=== PATIENT | female | born 1985 | race Two or more races ===

== ENCOUNTER 2022-12-16 10:14 | Inpatient (IN) | payer BC ==
[~2022-12-16] VITALS: Ht 172.7 cm; Wt 53.1 kg
[~2022-12-16 10:14] MED LIST: ATOR20TA PO; ETHI1TAB PO; INSU100V11 SQ; INSU3INS6 SQ; LISI2.5T2 PO
[2022-12-16] MEDS ORDERED: ONDANSETRON HCL/PF 4 MG/2 ML VIAL IVP ONE (10:30)
[2022-12-16] MEDS ORDERED: IV NS 0.9% 1,000 ML BAG IV ONE (10:30)
[2022-12-16] MEDS ORDERED: ONDANSETRON HCL/PF 4 MG/2 ML VIAL ONE (10:38)
--- NOTE | 2022-12-16 10:40 | NUR ---
Patient came in to the er c/o nausea vomiting since wednesday. On rom air, breathing evenly and unlabored. Connected to the monitor and pulse ox. Kept comfortable, will continue to monitor accordingly.
--- NOTE | 2022-12-16 10:52 | NUR ---
blood drawned and sent to lab.
[2022-12-16 11:11] LABS: BASOPHILS # (AUTO) 0.1 K/uL (0.0-0.2); BASOPHILS % (AUTO) 0.6 % (0.0-2.0); EOSINOPHILS % (AUTO) 0.4 % (0.0-6.0); HEMATOCRIT 42 % (33-45); HEMOGLOBIN 13.4 g/dL (11.5-14.8); LYMPHOCYTES # (AUTO) 1.4 K/uL (0.8-4.8); MEAN CORPUSCULAR HGB CONC 32 g/dl (31.0-36.0); MEAN CORPUSCULAR VOLUME 89 fL (82-100); MONOCYTES # (AUTO) 0.3 K/uL (0.1-1.30); MONOCYTES % (AUTO) 3.3 % (2.0-12.0); NEUTROPHILS # (AUTO) 7.3 K/uL (1.8-8.9); NEUTROPHILS % (AUTO) 80.7 % (43.0-81.0); PLATELET COUNT (AUTO) 432 K/uL (150-450); RED BLOOD CELL COUNT(AUTO) 4.66 MIL/uL (4.0-5.2)
[2022-12-16 11:22] LABS: ALBUMIN 3.7 g/dL (3.4-5.0); BILIRUBIN,DIRECT 0.1 mg/dL (0.0-0.2); BILIRUBIN,TOTAL 0.7 mg/dL (0.2-1.0); CALCIUM, SERUM 10.5 mg/dL (8.5-10.1); CREATININE 1.5 mg/dL (0.6-1.3); POTASSIUM 3.7 mmol/L (3.5-5.1); TOTAL PROTEIN, SERUM 9.1 g/dL (6.4-8.2)
[2022-12-16] MEDS ORDERED: INSU100V SQ (11:33)
[2022-12-16] MEDS ORDERED: OMEP20CA15 PO (11:33)
[2022-12-16 11:47] LABS: ABG BASE EXCESS -3.4 mmol/L; ABG PCO2 24.4 mmHg (35.0-45.0); ABG PH 7.491 (7.350-7.450); COHb 0.3 % (0.5-1.5); MetHb 0.2 % (0.0-1.5); SITE, ABG Right Radial; VENT MODE, BG ROOM AIR
--- NOTE | 2022-12-16 11:48 | NUR ---
SWAB FOR COVID19 SENT TO LAB
--- NOTE | 2022-12-16 11:57 | NUR ---
URINE SAMPLE SENT TO LAB
[2022-12-16] MEDS ORDERED: IV NS 0.9% 1,000 ML IV ONE (12:00)
[2022-12-16] MEDS ORDERED: LIDOCAINE VISCOUS 2% UD 15 ML UDC ONE (12:00)
[2022-12-16] MEDS ORDERED: INSULIN REGULAR, HUMAN 100 UNIT/ML 10 ML VIAL SQ ONE (12:00)
[2022-12-16] MEDS ORDERED: MAG HYDROX/AL HYDROX/SIMETH 30 ML UDC ONE (12:00)
[2022-12-16] MEDS ORDERED: FAMOTIDINE/PF INJ 20 MG/2 ML VIAL IV ONE ×2 (12:00→12:01)
[2022-12-16] MEDS ORDERED: LIDOCAINE VISCOUS 2% UD 15 ML UDC MM ONE (12:00)
[2022-12-16] MEDS ORDERED: MAG HYDROX/AL HYDROX/SIMETH 30 ML UDC PO ONE (12:00)
--- NOTE | 2022-12-16 12:00 | NUR ---
MOVE SHEET SUBMITTED.
[2022-12-16] MEDS ORDERED: INSULIN REGULAR, HUMAN 100 UNIT/ML 10 ML VIAL ONE (12:21)
[2022-12-16 12:31] LABS: BILIRUBIN,URINE 2+ (NEGATIVE); COLOR,URINE YELLOW (YELLOW); LEUKOCYTE ESTERASE ,URINE TRACE (NEGATIVE); NITRITE, URINE NEGATIVE (NEGATIVE); PROTEIN,URINE NEGATIVE (NEGATIVE); UGLUCOSE 2+ mg/dL (NEGATIVE); UROBILINOGEN,URINE 0.2 EU/dL (0.2)
[2022-12-16 12:51] LABS: BACTERIA,URINE Rare /HPF (None Seen); SQUAMOUS EPITHELIAL CELL,UR Many /HPF (None Seen)
[2022-12-16] MEDS ORDERED: diphenhydrAMINE HCL 50 MG/ML VIAL IV ONE (13:30)
[2022-12-16] MEDS ORDERED: METOCLOPRAMIDE HCL 10 MG/2 ML VIAL IV ONE (13:30)
[2022-12-16] MEDS ORDERED: diphenhydrAMINE HCL 50 MG/ML VIAL ONE (13:31)
[2022-12-16] MEDS ORDERED: METOCLOPRAMIDE HCL 10 MG/2 ML VIAL ONE (13:31)
--- NOTE | 2022-12-16 13:47 | NUR ---
BED 328-2
--- NOTE | 2022-12-16 14:49 | NUR ---
REPORT GIVEN TO MARY GASTELUM FOR IVORY
--- NOTE | 2022-12-16 15:00 | NUR ---
MS GRANITE POLISHER NOTES: RECEIVED TELEPHONE REPORT FROM ER STAFF. PT CAME TO UNIT VIA GURNEY, AMBULATED TO BED WITH STEADY GAIT. PT IS AWAKE, A/O X4, VERBALIZES NEEDS, FAMILY AT BEDSIDE. STABLE ON RA, WITH NO S/S OF ACUTE RESP DISTRESS. VITALS FB=475/82, HR= 110, RESP =18, O2 SAT @ 99%. PT C/O OF NAUSEA, WILL MEDICATE ORDERED. DENIES PAIN AT THIS TIME. IV ACCESS AT R AC #18, INTACT, FLUSHING WELL. PER MD ORDER WILL INFUSE NS @ 125ML/HR. PT IS CLEAN, SKIN IS INTACT. ORIENTED TO ROOM, UNIT AND STAFF, INSTRUCTED ABOUT USE OF CALL LIGHT, PT VERBALIZED UNDERSTANDING. SAFETY MEASURES IN PLACE, TABLE AND CALL LIGHT WITHIN REACH, WILL CONT WITH PLAN OF CARE DURING SHIFT. Addendum: 12/16/22 at 1922 by OREN JASMINE RN PT IS TELE, SHOE PATTERNMAKER PLACED, PT IS ST, HR = 112
[2022-12-16] MEDS ORDERED: ONDANSETRON HCL/PF 4 MG/2 ML VIAL IVP PRN (15:30)
[2022-12-16] MEDS ORDERED: DEXTROSE 50%-WATER 50 ML DISP.SYRIN IV PRN (15:30)
[2022-12-16] MEDS ORDERED: ACETAMINOPHEN 325 MG TABLET PO PRN (15:30)
[2022-12-16] MEDS ORDERED: Z GUARD REMEDY 4 OZ OINT TP PRN (15:30)
[2022-12-16] MEDS ORDERED: MAGNESIUM HYDROXIDE 30 ML UDC PO PRN (15:30)
[2022-12-16] MEDS: IV NS 0.9% 1,000 ML IV SCH (15:31)
[2022-12-16] MEDS: METOCLOPRAMIDE HCL 10 MG/2 ML VIAL IV PRN (16:19)
[2022-12-16] MEDS: INSULIN REGULAR, HUMAN 100 UNIT/ML 3 ML VIAL SQ PRN (17:23)
[2022-12-16] MEDS: INSULIN GLARGINE, 100 UNIT/ML CARTRIDGE SQ SCH (17:34)
[2022-12-16] MEDS: BLOOD SUGAR DIAGNOSTIC 1 EACH STRIP VI SCH ×2 (17:35→21:05)
--- NOTE | 2022-12-16 19:16 | NUR ---
TITLE SEARCH MANAGER CLOSING NOTES: PT IS AWAKE, A/O X4, VERBALIZES NEEDS, STABLE ON RA, WITH NO S/S OF ACUTE RESP DISTRESS. PT ON TELE MONITOR, READ SINUS TACHYCARDIA, HR= 108. IV ACCESS AT R AC #18, RUNNING NS @ 125ML/HR. NAUSEA CONTROL AND GLUCOSE CONTROL ADMINISTERED, ALL NEEDS MET. SAFETY MEASURES IN PLACE, TABLE AND CALL LIGHT WITHIN REACH, ENDORSED TO PM SHIFT.
--- NOTE | 2022-12-16 20:00 | NUR ---
TRIMMING MACHINE SET UP OPERATOR OPENING NOTES RECEIVED PATIENT IN BED AWAKE, ALERT AND ORIENTED. A/O X 4. ON RA, NO SIGNS OF RESPIRATORY DISTRESS AT THIS TIME. IV ACCESS ON RAC #18G WITH NS RUNNING 125 ML/HR, INFUSING WELL. ON TELE MONITOR, SINUS TACH WITH HR OF 115. SAFETY MEASURES GIVEN WITH BED ON LOWEST AND LOCKED POSITION. CALL LIGHT AND TABLE ON REACH. SIDE RAILS UP X 2. WILL CONTINUE WITH THE PLAN OF CARE.
[2022-12-16] MEDS: ONDANSETRON HCL/PF 4 MG/2 ML VIAL IVP PRN (20:01)
[2022-12-16] MEDS: *INSULIN REGULAR(HUMULIN R)HUM 100 UNIT/ML VIAL SQ PRN (21:08)
[2022-12-16] MEDS: TEMAZEPAM 15 MG CAPSULE PO PRN (21:45)
--- NOTE | 2022-12-16 21:45 | NUR ---
RN NOTES PATIENT ASKED FOR SLEEP MEDICATION. RESTORIL 15MG GIVEN PER DR. TAYLOR. BED ALARM ON. WILL CONTINUE TO MONITOR PATIENT.
[2022-12-17] MEDS: IV NS 0.9% 1,000 ML IV SCH ×4 (00:20→23:05)
[2022-12-17] MEDS: ONDANSETRON HCL/PF 4 MG/2 ML VIAL IVP PRN ×5 (02:52→16:51)
--- NOTE | 2022-12-17 03:45 | NUR ---
RN NOTES BLOOD SUGAR RE-CHECKED. 219 WILL CONTINUE TO MONITOR.
--- NOTE | 2022-12-17 04:18 | NUR ---
RN NOTES PATIENT ASKED FOR HEARTBURN MEDICATION. MAALOX GIVEN. WILL CONTINUE TO MONITOR.
[2022-12-17] MEDS: MAG HYDROX/AL HYDROX/SIMETH 30 ML UDC PO PRN (04:19)
--- NOTE | 2022-12-17 05:10 | NUR ---
RN NOTES PATIENT HAS BEEN VOMITING MULTIPLE TIMES. ICE CHIPS GIVEN TO ALLEVIATE N&V.
[2022-12-17] MEDS: METOCLOPRAMIDE HCL 10 MG/2 ML VIAL IV PRN ×2 (05:34→15:15)
--- NOTE | 2022-12-17 05:45 | NUR ---
RN NOTES REGLAN GIVEN TO PATIENT FOR N&V. WILL CONTINUE TO MONITOR.
[2022-12-17 06:16] LABS: BASOPHILS % (AUTO) 0.4 % (0.0-2.0); EOSINOPHILS % (AUTO) 0.1 % (0.0-6.0); HEMATOCRIT 37 % (33-45); HEMOGLOBIN 11.9 g/dL (11.5-14.8); LYMPHOCYTES # (AUTO) 1.5 K/uL (0.8-4.8); LYMPHOCYTES % (AUTO) 12.3 % (20.0-44.0); MEAN CORPUSCULAR HGB CONC 32 g/dl (31.0-36.0); MEAN CORPUSCULAR VOLUME 88 fL (82-100); MONOCYTES # (AUTO) 1.2 K/uL (0.1-1.30); MONOCYTES % (AUTO) 9.9 % (2.0-12.0); NEUTROPHILS # (AUTO) 9.2 K/uL (1.8-8.9); NEUTROPHILS % (AUTO) 77.3 % (43.0-81.0); PLATELET COUNT (AUTO) 408 K/uL (150-450); RED BLOOD CELL COUNT(AUTO) 4.17 MIL/uL (4.0-5.2); WHITE BLOOD COUNT (AUTO) 11.9 K/uL (4.3-11.0)
[2022-12-17 06:36] LABS: CALCIUM, SERUM 8.9 mg/dL (8.5-10.1); CREATININE 1.3 mg/dL (0.6-1.3); PHOSPHORUS 2.2 mg/dL (2.5-4.9); POTASSIUM 3.1 mmol/L (3.5-5.1)
[2022-12-17] MEDS ORDERED: POTASSIUM CHLORIDE 20 MEQ TAB.PRT.SR PO ONE (07:30)
--- NOTE | 2022-12-17 07:30 | NUR ---
BATCH OPERATOR OPENING NOTES RECEIVED PATIENT IN BED AWAKE, ALERT AND ORIENTED. A/O X 4. ON RA, NO SIGNS OF RESPIRATORY DISTRESS AT THIS TIME. IV ACCESS ON RAC #18G WITH NS INFUSING @ 125 ML/HR, IV SITE INTACT PATENT. ON TELE MONITOR, SINUS TACHYCARDIA HR 110BPM. SAFETY MEASURES DONE BED ON LOWEST POSITION, BED LOCKED. CALL LIGHT AND TABLE WITHIN PATIENTS REACH. SIDE RAILS UP X 2. WILL CONTINUE PLAN OF CARE.
[2022-12-17 08:00] VITALS: BP 144/72
--- NOTE | 2022-12-17 08:04 | NUR ---
SYSTEM CONFIGURATION SPECIALIST CLOSING NOTES PATIENT IN BED AWAKE, ALERT AND ORIENTED. A/O X 4. ON RA, NO SIGNS OF RESPIRATORY DISTRESS AT THIS TIME. IV ACCESS ON RAC #18G WITH NS RUNNING 125 ML/HR, INFUSING WELL. ON TELE MONITOR, SINUS TACH WITH HR OF 111. SAFETY MEASURES GIVEN WITH BED ON LOWEST AND LOCKED POSITION. CALL LIGHT AND TABLE ON REACH. SIDE RAILS UP X 2. MEDICATIONS GIVEN DURING SHIFT. WILL ENDORSE TO THE NEXT SHIFT.
[2022-12-17] MEDS: PANTOPRAZOLE 40 MG TABLET.DR PO SCH (08:19)
--- NOTE | 2022-12-17 08:20 | NUR ---
RN NOTES PATIENT VERBALIZES NAUSEA. PATIENT IS GIVEN ZOFRAN.
[2022-12-17] MEDS: BLOOD SUGAR DIAGNOSTIC 1 EACH STRIP VI SCH ×4 (08:46→21:21)
--- NOTE | 2022-12-17 08:50 | NUR ---
RN NOTES PATIENT REASSESSMENT TO MICHAEL. PATIENT CLAIMS TO STILL BE NAUSEOUS BUT A BIT ALLEVIATED
[2022-12-17] MEDS ORDERED: IV NS 0.9% 500 ML BAG IV PRN (09:30)
[2022-12-17] MEDS: POTASSIUM PHOSPHATE MM 7.5 MMOL in IV NS 0.9% 100 ML IV SCH ×2 (09:39→12:43)
[2022-12-17] MEDS: INSULIN REGULAR, HUMAN 100 UNIT/ML 3 ML VIAL SQ PRN ×2 (11:51→17:42)
[2022-12-17 12:00] VITALS: BP 130/68
--- NOTE | 2022-12-17 15:19 | NUR ---
MS RN NOTE PATIENT COMPLAINED OF NAUSEA. 2 HOURS PAST ZOFRAN WAS GIVEN PATIENT JUST WOKE UP FEELING NAUSEATED. ZOFRAN GIVEN INDICATED/ REQUESTED. MAINTAINED ON HIGH BACK REST. COMFORT MEASURES PROVIDED. ICE CHIPS GIVEN.
[2022-12-17] MEDS: INSULIN GLARGINE, 100 UNIT/ML CARTRIDGE SQ SCH (17:51)
--- NOTE | 2022-12-17 18:49 | NUR ---
MS RN CLOSING NOTES: PT IS AWAKE, A/O X4, VERBALIZES NEEDS, STABLE ON ROOM AIR, WITH NO SIGNS OF DISTRESS. PATIENT CLAIMS TO STILL HAVE NAUSEA DESPITE ZOFRAN AND REGLAN. DOCTOR IS INFORMED. IV ACCESS AT R AC #18, RUNNING NS @ 125ML/HR. ALL DUE MEDICATIONS ADMINISTERED, ATTENDED TO ALL NEEDS. SAFETY MEASURES IN PLACE, BED LOCKED AND IS AT LOWEST POSITION, TABLE AND CALL LIGHT WITHIN REACH, ENDORSED TO NEXT SHIFT FRO CONTINUITY OF CARE.
--- NOTE | 2022-12-17 19:50 | NUR ---
MS RN OPENING NOTE PATIENT AWAKE IN BED, ALERT/ORIENTED X 4, PT ABLE TO MAKE NEEDS KNOWN. PATIENT STABLE ON RA, NO S/S OF DISTRESS OR SOB NOTED, BREATHING EVEN AND UNLABORED. PT STILL C/O OF NAUSEA DESPITE ZOFRAN AND REGLAN GIVEN BY LUIS E RN. IV ACCESS ON RAC #18G INTACT AND INFUSING NS @ 125 ML/HR. SAFETY MEASURES IN PLACE: CALL LIGHT WITHIN REACH, SIDE RAILS UP X 2, BED LOCKED IN LOWEST POSITION, HOB ELEVATED, BED ALARM ON. WILL CONTINUE TO MONITOR PATIENT
[2022-12-17 20:00] VITALS: BP 136/76
--- NOTE | 2022-12-17 20:10 | NUR ---
MS RN NOTE NOTIFIED BUILDING ATTENDANT MD RICKY TAYLOR, PT C/O NAUSEA THAT HAS NOT BEEN RELIEVED BY ZOFRAN OR REGLAN TODAY. ORDER FOR COMPAZINE 10 MG IM Q8H PRN FOR SEVERE NAUSEA THAT'S NOT RELIEVED BY ZOFRAN OR REGLAN
[2022-12-17] MEDS ORDERED: PROCHLORPERAZINE EDISYLATE 10 MG/2 ML VIAL IM PRN (20:30)
--- NOTE | 2022-12-17 20:36 | NUR ---
MS RN NOTE CALLED PHARMACY, COMPAZINE 10 MG IM NOT AVAILABLE ON [facility], PER PHARMACIST THEY WILL BRING MEDICATION
--- NOTE | 2022-12-17 21:05 | NUR ---
MS RN NOTE PATIENT C/O NAUSEA, HAS BEEN UNRELIEVED BY ZOSTEPHENIE AND REGLAN. PRN COMPAZINE 10 MG IM Q8H GIVEN ORDERED, WILL CONTINUE TO MONITOR PATIENT
[2022-12-17] MEDS: TEMAZEPAM 15 MG CAPSULE PO PRN (21:15)
--- NOTE | 2022-12-17 21:18 | NUR ---
MS RN NOTE PATIENT REQUESTING SLEEPING MEDICATION, RESTORIL 15 MG PO GIVEN ORDERED
[2022-12-17] MEDS: *INSULIN REGULAR(HUMULIN R)HUM 100 UNIT/ML VIAL SQ PRN (21:21)
[2022-12-18] MEDS: ONDANSETRON HCL/PF 4 MG/2 ML VIAL IVP PRN ×5 (00:47→22:11)
[2022-12-18] MEDS: METOCLOPRAMIDE HCL 10 MG/2 ML VIAL IV PRN ×2 (03:52→17:52)
[2022-12-18 06:23] LABS: BASOPHILS # (AUTO) 0.1 K/uL (0.0-0.2); BASOPHILS % (AUTO) 0.9 % (0.0-2.0); HEMATOCRIT 34 % (33-45); HEMOGLOBIN 11.3 g/dL (11.5-14.8); LYMPHOCYTES # (AUTO) 1.9 K/uL (0.8-4.8); LYMPHOCYTES % (AUTO) 25.9 % (20.0-44.0); MEAN CORPUSCULAR HGB CONC 33 g/dl (31.0-36.0); MEAN CORPUSCULAR VOLUME 89 fL (82-100); MONOCYTES # (AUTO) 0.7 K/uL (0.1-1.30); MONOCYTES % (AUTO) 9.8 % (2.0-12.0); NEUTROPHILS # (AUTO) 4.6 K/uL (1.8-8.9); NEUTROPHILS % (AUTO) 62.4 % (43.0-81.0); PLATELET COUNT (AUTO) 340 K/uL (150-450); RED BLOOD CELL COUNT(AUTO) 3.87 MIL/uL (4.0-5.2); WHITE BLOOD COUNT (AUTO) 7.3 K/uL (4.3-11.0)
[2022-12-18] MEDS: IV NS 0.9% 1,000 ML IV SCH (06:37)
[2022-12-18] MEDS: INSULIN REGULAR, HUMAN 100 UNIT/ML 3 ML VIAL SQ PRN ×3 (06:39→17:34)
[2022-12-18] MEDS: MAG HYDROX/AL HYDROX/SIMETH 30 ML UDC PO PRN ×2 (06:53→13:52)
--- NOTE | 2022-12-18 07:00 | NUR ---
MS RN OPENING NOTES PATIENT LAYING IN BED, A/O X 4, ABLE TO MAKE NEEDS KNOWN, TOLERATING WELL ON ROOM AIR WITH NO S/S RESPIRATORY DISTRESS. NO COMPLAINTS OF NAUSEA AT THIS TIME. R AC # 18 CLEAN, INTACT, INFUSING NS @ 125 ML/HR. SAFETY MEASURES IN PLACE: BED IN LOWEST LOCKED POSITION, SIDE RAILS UP X 2, CALL LIGHT WITHIN REACH. WILL CONTINUE TO MONITOR.
--- NOTE | 2022-12-18 07:07 | NUR ---
MS RN CLOSING NOTE PATIENT AWAKE IN BED, ALERT/ORIENTED X 4, PT ABLE TO MAKE NEEDS KNOWN. PATIENT STABLE ON RA, NO S/S OF DISTRESS OR SOB NOTED, BREATHING EVEN AND UNLABORED. PT STILL C/O OF NAUSEA DESPITE COMPAZINE, ZOFRAN, AND REGLAN GIVEN THIS SHIFT, NO RELIEF PER PATIENT, 1 EPISODE OF EMESIS. IV ACCESS ON RAC #18G INTACT AND INFUSING NS @ 125 ML/HR. MEDICATIONS GIVEN ORDERED, PT NEEDS MET THROUGHOUT SHIFT. SAFETY MEASURES IN PLACE: CALL LIGHT WITHIN REACH, SIDE RAILS UP X 2, BED LOCKED IN LOWEST POSITION, HOB ELEVATED, BED ALARM ON. WILL ENDORSE TO DAYSHIFT RN FOR CONTINUITY OF CARE
[2022-12-18 07:11] LABS: CREATININE 0.9 mg/dL (0.6-1.3); PHOSPHORUS 2.6 mg/dL (2.5-4.9); POTASSIUM 3.5 mmol/L (3.5-5.1)
[2022-12-18] MEDS: BLOOD SUGAR DIAGNOSTIC 1 EACH STRIP VI SCH ×4 (07:51→22:11)
[2022-12-18 08:00] VITALS: BP 135/75
[2022-12-18] MEDS: PANTOPRAZOLE 40 MG TABLET.DR PO SCH (09:12)
[2022-12-18] MEDS: IV NS 0.9% 1,000 ML IV PRN (14:42)
[2022-12-18 16:09] VITALS: BP 140/72
[2022-12-18] MEDS: INSULIN GLARGINE, 100 UNIT/ML CARTRIDGE SQ SCH (17:33)
--- NOTE | 2022-12-18 18:45 | NUR ---
MS RN CLOSING NOTES PATIENT LAYING IN BED, A/O X 4, ABLE TO MAKE NEEDS KNOWN, TOLERATING WELL ON ROOM AIR WITH NO S/S RESPIRATORY DISTRESS. PATIENT WITH NAUSEA DURING SHIFT NOT RELIEVED BY MEDICATION. NO EMESIS DURING SHIFT. R AC # 18 CLEAN, INTACT, INFUSING NS @ 125 ML/HR. SAFETY MEASURES IN PLACE: BED IN LOWEST LOCKED POSITION, SIDE RAILS UP X 2, CALL LIGHT WITHIN REACH. ALL NEEDS MET. WILL ENDORSE TO PEDIATRIC REGISTERED NURSE FOR IVORY.
[2022-12-18 20:00] VITALS: BP 135/77
[2022-12-18] MEDS: TEMAZEPAM 15 MG CAPSULE PO PRN (22:11)
[2022-12-18] MEDS: *INSULIN REGULAR(HUMULIN R)HUM 100 UNIT/ML VIAL SQ PRN (22:30)
[2022-12-19] MEDS: IV NS 0.9% 1,000 ML IV PRN (04:04)
[2022-12-19] MEDS: ONDANSETRON HCL/PF 4 MG/2 ML VIAL IVP PRN ×2 (05:31→09:51)
[2022-12-19] MEDS: BLOOD SUGAR DIAGNOSTIC 1 EACH STRIP VI SCH (06:44)
[2022-12-19] MEDS: INSULIN REGULAR, HUMAN 100 UNIT/ML 3 ML VIAL SQ PRN (06:45)
--- NOTE | 2022-12-19 07:25 | NUR ---
MS RN CLOSING NOTE PATIENT SLEEPING IN BED, ALERT/ORIENTED X 4, PT ABLE TO MAKE NEEDS KNOWN. PATIENT STABLE ON RA, NO S/S OF DISTRESS OR SOB NOTED, BREATHING EVEN AND UNLABORED. PATIENT'S NAUSEA IMPROVED THIS SHIFT, NO EPISODES OF EMESIS. IV ACCESS ON LEFT AC #20G INTACT AND INFUSING NS @ 125 ML/HR. MEDICATIONS GIVEN ORDERED, PT NEEDS MET THROUGHOUT SHIFT. SAFETY MEASURES IN PLACE: CALL LIGHT WITHIN REACH, SIDE RAILS UP X 2, BED LOCKED IN LOWEST POSITION, HOB ELEVATED, BED ALARM ON. WILL ENDORSE TO DAYSHIFT RN FOR CONTINUITY OF CARE
--- NOTE | 2022-12-19 07:30 | NUR ---
RN OPENING NOTE RECEIVED PATIENT RESTING IN BED, AWAKE, A/O X4, VERBALLY RESPONSIVE. NO SIGNS OF CAUTE DISTRESS NOTED. ON ROOM AIR, TOLERATING WELL. NO SOB NOTED, BREATHING EVEN AND UNLABORED. DENIES ANY PAIN AT THIS TIME BUT STILL WITH C/O NAUSEA, WILL MEDICATE NEEDED. NOTED WITH IV ACCESS ON LEFT ANTECUBITAL AREA #20G, INTACT AND PATENT WITH NS @125ML/HR INFUSING WELL. SAFETY MEASURE IN PLACE. BED IN LOW AND LOCKED POSITION, SIDE RAILS UP X2, CALL LIGHT PLACED WITHIN EASY REACH. WILL CONTINUE TO MONITOR PATIENT.
[2022-12-19 08:00] VITALS: BP 141/80
[2022-12-19] MEDS: METOCLOPRAMIDE HCL 10 MG/2 ML VIAL IV PRN (08:12)
[2022-12-19] MEDS: PANTOPRAZOLE 40 MG TABLET.DR PO SCH (08:12)
--- NOTE | 2022-12-19 11:35 | NUR ---
ASSISTANT TRACK AND FIELD COACH NOTE PATIENT DISCHARGED HOME IN STABLE CONDITION. PATIENT REMAINS AWAKE, A/O X4, ABLE TO MAKE NEEDS KNOWN. IV ACCESS ON LEFT AC REMOVED, NO BLEEDING NOTED, PRESSURE DRESSING APPLIED TO SITE. ALL BELONGINGS ACCOUNTED FOR. EXITCARE FOLDER GIVEN TO PATIENT. DISCHARGE INSTRUCTIONS AND HEALTH TEACHINGS PROVIDED TO PATIENT WITH VERBALIZATION OF UNDERSTANDING. PATIENT LEFT UNIT @1115, ACCOMPANIED PATIENT TO THE WEST, AMBULATORY. PICKED UP BY HER FATHER ARUN VIA PRIVATE CAR.
== END 2022-12-19 11:10 | disposition home or self-care (01) | DRG 73 ==
LOC: ER 10:23 → TELE 14:23 → MED 12-17 10:15
PROVIDERS: ADMIT Internal Medicine; ATTEND Internal Medicine
DX: E10.43 Type 1 diabetes mellitus with diabetic autonomic (poly)neuropathy (principal); N17.0 Acute kidney failure with tubular necrosis; E87.20 Acidosis, unspecified; E72.51 Non-ketotic hyperglycinemia; E86.0 Dehydration; E10.65 Type 1 diabetes mellitus with hyperglycemia; Z79.4 Long term (current) use of insulin; K31.84 Gastroparesis; Z20.822 Contact with and (suspected) exposure to COVID-19; K29.70 Gastritis, unspecified, without bleeding; E78.5 Hyperlipidemia, unspecified; K21.9 Gastro-esophageal reflux disease without esophagitis; Z91.013 Allergy to seafood; Z79.899 Other long term (current) drug therapy; I10 Essential (primary) hypertension; Z83.3 Family history of diabetes mellitus; Z80.9 Family history of malignant neoplasm, unspecified; Z87.891 Personal history of nicotine dependence; E83.39 Other disorders of phosphorus metabolism; E87.6 Hypokalemia
CPT/HCPCS: 36415; 36600; 80048-TC; 80076-TC; 81001; 82010-TC; 82803-TC; 82962-TC; 83690-TC; 83735-TC; 84100-TC; 84703-TC; 85025-TC; C9803; G0378; J0780; J1200; J1815; J2405; J2765; J3490; J7030; J7040; J7050